=== PATIENT | female | born 2000 | race Caucasian/White ===

== ENCOUNTER 2024-01-11 19:02 | Emergency (ER) | payer BC, SELFPAY ==
[2024-01-11 19:05] VITALS: BP 115/69
--- NOTE | 2024-01-11 19:42 | ED.GENMED ---
History of Present Illness
General
Chief Complaint: Abdominal Pain
Source: patient
Exam Limitations: none
Time Seen by Provider: 01/11/24 19:34
Nursing documentation reviewed up to this point in time: agreed with
Travel History
Have you had any contact with someone who has COVID-19?: No
Do you have any symptoms of coronavirus? Fever > 100 degrees, chills, cough, shortness of breath, sore throat, loss of taste or smell, muscle aches, or headache?: No
History of Present Illness
History of Present Illness:
Patient to ED with complaint of abdominal pain, n/v/d. States last sunday she developed right ear pain. Seen by PCP and told she had TM perforation. SHe states this is common for her. SHe follow with ENT for chronic ear issues. Sunday pain
became worse so she went to . She was prescribed Cefdinir. Jimmy she saw her ENT and was tod her ear was improved, continue Cefdinir. Today she developed a right sided headache and increasing right ear pain. SHe went back to and was told to
stop cefdinir and begin course of doxycycline. Told to come to ED if her symptoms worsen. SInce then she complaints of upper abdominal pain, n/v, chills. Brought self to ED for eval. Has been taking ibuprofen 400-600mg every 4 hours since sunday.
Has not had ibuprofen since this AM
Phy Exam
General Physical Exam
General Presentation: well appearing
General age: appears stated age
General Skin: warm and dry
General Habitus: normal
General Mental: alert
Gastrointestinal Exam
Gastrointestinal Exam: normal bowel sounds, soft, no organomegaly, non distended and no cva tenderness
Palpation: left upper quadrant: Moderate tenderness, left lower quadrant: No tenderness, right upper quadrant: Moderate tenderness and right lower quadrant: No tenderness
Musculoskeletal Exam
Musculoskeletal Exam: full ROM and neuro vasc intact
Skin Exam
Skin Exam: normal color, warm/dry and no rash
Psychiatric Exam
Psychiatric Exam: normal mood/affect
Course
Orders/Labs/Results
Orders:
Orders
01/11/24 19:40
0.9% Sodium Chloride 1000 ml [Nss] 1,000 ml IV BOLUS
Ondansetron Injectable [Zofran] 4 mg IV NOW STA
Pantoprazole [Protonix IV] 40 mg IV NOW STA
01/11/24 20:07
Complete Blood Count/With Diff Urgent
Comprehensive Metabolic Panel Urgent
Lipase Urgent
Urinalysis Reflex To Culture Urgent
Date Specimen was Collected: 01/11/24
Time Specimen was Collected: 20:06
Urine Microscopic Reflex Cult Urgent
Abnormal Lab Results
01/11/24
20:07
MCH 32.5 H pg
(27.0-31.0)
RDW 11.3 L %
(11.5-14.5)
Absolute Neuts (auto) 7.6 H 10^3/uL
(1.4-6.5)
Absolute Lymphs (auto) 0.4 L 10^3/uL
(1.2-3.4)
Neutrophils % 91.6 H %
(42.2-75.2)
Lymphocytes % 4.6 L %
(20.5-51.1)
Glucose 113 H mg/dl
(70-99)
Total Bilirubin 1.4 H mg/dl
(0.2-1.3)
Albumin 5.1 H g/dl
(3.5-5.0)
Urine Ketones 3+ A
(Negative)
Leukocyte Esterase Rfl Trace A
(Negative)
01/11/24 20:07
01/11/24 20:07
Vital Signs
Initial and Last Documented VS:
Initial Vital Signs
Temp Pulse Resp BP Pulse Ox
97.6 F 81 16 115/69 100
01/11/24 19:05 01/11/24 19:05 01/11/24 19:05 01/11/24 19:05 01/11/24 19:05
Last Documented Vital Signs
Temp Pulse Resp BP Pulse Ox
99.1 F 71 20 106/64 100
01/11/24 20:35 01/11/24 21:00 01/11/24 21:00 01/11/24 21:00 01/11/24 21:00
*Critical Care Note
Total Time (30-74mins, 75-104mins- exclusive of procedures): Not Applicable
Update Note
Update Note:
Improved after IVF and protonix. Pain has resolved. Will discharge home, continue protonix daily. Recommend avoiding IBuprofen as she was taking every 4 hours for the past 6 days. . Use tylenol instead. Doxycycline may have contributed to her
symptoms. SHe will take next dose, if symptoms return she will discontinue med. WIll follow up with ENT next week as scheduled.
ED Attending Note
-
Portions of this chart may have been created with voice recognition software.� Occasional wrong word or��sound alike� substitutions may have occurred due to the inherent limitations of voice recognition software.
Discharge Plan
Departure
Patient Disposition: Home (Routine Discharge)
Date of Disposition: 01/11/24
Time of Disposition: 21:11
Patient with high blood pressure during this ER visit?: No
Condition: Good
Covid-19: Not Applicable
Discharge Problem:
Abdominal pain
Instructions: Abdominal Pain
Prescriptions:
New
pantoprazole [Protonix] 40 mg tablet,delayed release (DR/EC)
40 mg PO DAILY Qty: 14 0RF
No Action
Albuterol
2 puff inhalation PRN (Reason: SOB )
esomeprazole magnesium [Nexium Packet] [address] for susp in packet
10 mg PO
ondansetron 4 MG tablet,disintegrating
4 mg PO TIDPRN PRN (Reason: NAUSEA) Qty: 20 0RF
Referrals:
PRIVATE,PHYSICIAN [Family Provider] -
Activity Restrictions/Additional Instructions:
Follow up with your ENT as scheduled. Avoid Ibuprofen.
Interventions
Interventions:
*Risk Screen - Suicide Last Done: 01/11/24 19:05
*General Assessment Last Done: 01/11/24 19:05
*Neglect/Abuse Screening Last Done: 01/11/24 19:05
ED- Fall Risk Assessment Last Done: 01/11/24 19:42
*ED COVID-19 Vaccine History Last Done: 01/11/24 19:42
*Nursing Disposition Last Done: 01/11/24 21:30
CK-Npyvdr-Cfdyxhwmyo Assessment Last Done: 01/11/24 19:42
Discharge Date and Time
Discharge Date/Time: 01/11/24 21:30
Print Language: TRISTANIAN
[2024-01-11] MEDS: ZOFRAN 4 MG IV (20:12)
[2024-01-11] MEDS: NSS 1000 IV (20:12)
[2024-01-11] MEDS: PROTONIX IV 40 MG IV (20:13)
[2024-01-11 20:25] LABS: % Basophils 0.4 % (0-2); % Eosinophils 0.1 % (0-6); % Immature Granulocytes 0.4 % (0-0.5); % Lymphocytes 4.6 % (20.5-51.1); % Monocytes 2.9 % (1.7-9.3); % Neutrophils 91.6 % (42.2-75.2); Absolute Lymphocytes 0.4 10^3/uL (1.2-3.4); Absolute Monocytes 0.2 10^3/uL (0.1-0.6); Absolute Neutrophils 7.6 10^3/uL (1.4-6.5); Hemoglobin 15.2 g/dL (12.0-16.0); Mean Corp Hgb Conc. 35.3 g/dL (33.0-37.0); Mean Corpuscular Hgb 32.5 pg (27.0-31.0); Mean Corpuscular Volume 91.9 fL (81.0-99.0); Mean Platelet Volume 9.8 fL (7.4-10.4); Nucleated Red Blood Cells % 0 %; Platelet Count 206 10^3/uL (130-400); Red Blood Cell Count 4.68 10^6/uL (4.20-5.40); Red Cell Dist. Width 11.3 % (11.5-14.5); White Blood Cell Count 8.3 10^3/uL (4.8-10.8)
[2024-01-11 20:26] LABS: Urine Albumin Trace (Neg - Trace); Urine Bilirubin Negative (Negative); Urine Character Clear (Clear); Urine Color Yellow; Urine Glucose Negative (Negative); Urine Ketone 3+ (Negative); Urine Leukocyte Trace (Negative); Urine Nitrite Negative (Negative); Urine Occult Blood Negative (Negative); Urine Urobilinogen Negative (Neg - 1+)
[2024-01-11 20:31] VITALS: BP 112/62
[2024-01-11 20:35] VITALS: BP 112/62
[2024-01-11 20:35] LABS: ALT (SGPT) 28 U/L (0-35); AST (SGOT) 33 U/L (14-36); Albumin 5.1 g/dl (3.5-5.0); Alkaline Phosphatase 66 U/L (38-126); Blood Urea Nitrogen 17 mg/dl (7-17); Calcium 9.8 mg/dl (8.4-10.2); Carbon Dioxide 23 mmol/L (22-30); Chloride 103 mmol/L (98-107); Glucose 113 mg/dl (70-99); Lipase 50 U/L (23-300); Potassium 3.7 mmol/L (3.5-5.1); Sodium 137 mmol/L (135-145); Total Bilirubin 1.4 mg/dl (0.2-1.3); Total Protein 7.6 g/dl (6.3-8.2); eGFR > 60.00
[2024-01-11 20:36] LABS: Urine Red Blood Cell None Seen /HPF (0-2)
[2024-01-11 21:00] VITALS: BP 106/64
== END 2024-01-11 21:30 | disposition home or self-care (01) ==
LOC: EMR 19:02
PROVIDERS: Nurse Practitioner; EMERGENCY PHYSICIAN Emergency Medicine
DX: R10.9 Unspecified abdominal pain (principal)
CPT/HCPCS: 99284; 96374; 96375; 96361; 80053; 81003; 81015; 83690; 85025

== ENCOUNTER 2024-07-24 06:07 | Day surgery (SDC) | payer OTHER, SELFPAY ==
[2024-07-24] VITALS (7 sets, daily range): BP systolic 93–126; BP diastolic 47–70; BMI 22.3
[2024-07-24 09:58] LABS: HCG, Urine Qualitative Screen Negative
== END 2024-07-24 12:05 | disposition home or self-care (01) ==
LOC: SDS 06:07
PROVIDERS: ATTENDING PHYSICIAN Otolaryngology
DX: H66.91 Otitis media, unspecified, right ear (principal)
CPT/HCPCS: 69436; 81025